=== PATIENT | female | born 1965 | race African-American/Black ===

== ENCOUNTER 2016-11-12 08:28 | Emergency (ER) | payer OTHER ==
[2016-11-12 08:38] VITALS: TEMP 97.4; BMI 26.9
[2016-11-12] MEDS ORDERED: CYCLOBENZAPRINE 10 MG TAB PO STA (09:31)
[2016-11-12] MEDS ORDERED: OXYCODONE HCL 5 MG TABLET PO STA (09:31)
[2016-11-12] MEDS ORDERED: IBUPROFEN 600 MG TAB PO STA (09:31)
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
[2016-11-12 10:19] VITALS: BP 160/72; PULSE 76
== END 2016-11-12 10:17 | disposition home or self-care (01) ==
LOC: ED 08:28
DX: S46.912A Strain of unspecified muscle, fascia and tendon at shoulder and upper arm level, left arm, initial encounter (principal); V49.40XA Driver injured in collision with unspecified motor vehicles in traffic accident, initial encounter; Y93.9 Activity, unspecified; Y92.410 Unspecified street and highway as the place of occurrence of the external cause
CPT/HCPCS: 99283; J3490